=== PATIENT | female | born 2005 | race Caucasian/White ===

== ENCOUNTER 2023-03-12 03:52 | Emergency (ER) | payer MEDICAID ==
[~2023-03-12] VITALS: Ht 157.5 cm; Wt 99.7 kg
[2023-03-12 04:01] VITALS: O2SAT 100
[2023-03-12 04:49] LABS: BASOPHILS % 0.2 % (0.0-2.0); DIFFERENTIAL COMMENT 0; EOSINOPHILS % 1.6 % (0.0-5.0); HEMOGLOBIN. 12.2 g/dL (12.0-16.0); LYMPHOCYTES % 17.6 % (20.0-50.0); MEAN CORPUSCULAR HEMOGLOBIN 25.9 pg (28.0-32.0); MEAN CORPUSCULAR HGB CONC 32.9 g/dL (31.0-37.0); MEAN CORPUSCULAR VOLUME 78.9 fL (81.0-99.0); MEAN PLATELET VOLUME 9.5 fl (7.4-10.4); MONOCYTES % 5.1 % (2.0-8.0); NEUTROPHILS % 75.5 % (40.0-76.0); PLATELET 288 x1000/uL (130-400); RED BLOOD CELL COUNT 4.69 mill/uL (4.2-5.4); RED CELL DISTRIBUTION WIDTH 20.2 % (11.6-14.6); WHITE BLOOD COUNT 14.9 x1000/uL (4.5-11.0)
[2023-03-12 04:59] LABS: CHLORIDE 109 mEq/L (98-107); INDEX HEMOLYSI 1 (1-3); INDEX ICTERIC 1 (1-4); INDEX LIPEMIC 1 (1-3); POTASSIUM 3.5 mEq/L (3.5-5.1); SODIUM 141 mEq/L (136-145)
[2023-03-12 05:10] LABS: ALANINE AMINOTRANSFERASE 28 IU/L (13-61); ALBUMIN 3.2 g/dL (3.4-5.0); ASPARTATE AMINOTRANSFERASE 37 IU/L (15-37); BILIRUBIN TOTAL 0.5 mg/dL (0.1-1.0); CALCIUM 8.5 mg/dL (8.5-10.1); CARBON DIOXIDE 27 mEq/L (21-32); CREATININE 0.6 mg/dL (0.6-1.3); GLUCOSE 109 mg/dL (70-105); NT PRO B-TYPE NATRIURETIC PEP 52 pg/mL (5-125); PROTEIN TOTAL 7.5 g/dL (6.0-8.3); UREA NITROGEN BLOOD 14 mg/dL (7-21)
[2023-03-12 05:12] LABS: TROPONIN I HIGH SENSITIVITY < 4 ng/L (<54)
[2023-03-12 07:06] LABS: HCG SCREEN NEGATIVE
[2023-03-12] MEDS ORDERED: KETOROLAC 30MG/ML VIAL IV NR (07:30)
[2023-03-12] MEDS ORDERED: SODIUM CHLORIDE 0.9% 1,000 ML IV ONE (07:30)
[2023-03-12 09:12] VITALS: BP 125/81
[2023-03-12 10:49] VITALS: PULSE 76; RESP 16; TEMP 98.1
== END 2023-03-12 10:50 | disposition home or self-care (01) ==
LOC: ER 03:52
DX: K80.20 Calculus of gallbladder without cholecystitis without obstruction (principal)
CPT/HCPCS: 80053; 81025; 84703; 83880; 85025; 84484; 36415; 71045; 76705; 93005; 96361; 96374; 99285; J1885; Z7610 ×2